=== PATIENT | male | born 1970 | race Caucasian/White ===

== ENCOUNTER 2020-09-05 20:29 | Emergency (ER) | payer OTHER ==
--- NOTE | 2020-09-05 20:48 | ED ---
Recheck HPI - General Stated Complaint: COVID Test Time Seen by Provider: 09/05/20 20:46 - History of Present Illness Initial Comments: 49-year-old male presenting to the ER today for chief complaint of coma test across the [place]. Patient denies any symptoms he states he was at a meeting in [facility] - Related Data Allergies Allergy/AdvReac Type Severity Reaction Status Date / Time No Known Allergies Allergy Verified 09/05/20 20:51 Review of Systems ROS Statement: Those systems with pertinent positive or pertinent negative responses have been documented in the HPI. ROS Other: All systems not noted in ROS Statement are negative. General Exam - General Exam Comments Initial Comments: General: The patient is awake and alert, in no distress, and does not appear acutely ill. Eye: Pupils are equal, round and reactive to light, extra-ocular movements are intact. No nystagmus. There is normal conjunctiva bilaterally. No signs of icterus. Ears, nose, mouth and throat: There are moist mucous membranes and no oral lesions. Neck: The neck is supple, there is no tenderness or JVD. Cardiovascular: There is a regular rate and rhythm. No murmur, rub or gallop is appreciated. Respiratory: Lungs are clear to auscultation, respirations are non-labored, breath sounds are equal. No wheezes, stridor, rales, or rhonchi. Musculoskeletal: Normal ROM, no tenderness. Strength 5/5. Sensation intact. Pulses equal bilaterally 2+. Neurological: A&O x 3. CN II-XII intact grossly, There are no obvious motor or sensory deficits. Coordination appears grossly intact. Speech is normal. Skin: Skin is warm and dry and no rashes or lesions are noted. Psychiatric: Cooperative, appropriate mood & affect, normal judgment. Course Vital Signs 09/05/20 20:52 Temperature 98 F Pulse Rate 100 Respiratory 16 Rate Blood Pressure 148/102 O2 Sat by Pulse 98 Oximetry Medical Decision Making - Medical Decision Making Covid (-) pt has no symptoms or known exposures. discharged appearing well. - Lab Data Lab Results 09/05/20 Range/Units 20:52 Coronavirus (PCR) Not Detected (Not Detectd) Disposition Clinical Impression: Encounter for laboratory testing for COVID-19 virus Disposition: HOME SELF-CARE Condition: Good Additional Instructions: Please return to emergency room if the symptoms increase or worsen or for any other concerns. Is patient prescribed a controlled substance at d/c from ED?: No Referrals: None,Stated [Primary Care Provider] - 1-2 days Time of Disposition: 20:48
[2020-09-05 20:54] VITALS: BP 148/102; PULSE 100; RESP 16; TEMP 98
== END 2020-09-05 21:48 | disposition home or self-care (01) ==
LOC: EC 20:29
DX: Z20.822 Contact with and (suspected) exposure to COVID-19 (principal)
CPT/HCPCS: 87635; 99283